=== PATIENT | male | born 1990 | race Caucasian/White ===

== ENCOUNTER 2016-09-28 11:27 | Emergency (ER) | payer BC, OTHER ==
[~2016-09-28] VITALS: Ht 167.6 cm; Wt 58.0 kg
[~2016-09-28 11:27] MED LIST: IBUP-1542 PO; MAG355OR14 PO; ONDA4TAB8 PO
[2016-09-28 11:29] VITALS: Ht 167.6 cm; Wt 58.0 kg
[2016-09-28] MEDS ORDERED: SOD CHLORIDE 0.9% 1,000 ML IV STA (12:01)
[2016-09-28] MEDS ORDERED: ONDANSETRON 4 MG INJ IV STA (12:01)
[2016-09-28] MEDS ORDERED: HYDROmorphONE 1 MG/ML SYG IV STA (12:01)
[2016-09-28 12:36] LABS: ADD SCAN DIFF NO
[2016-09-28 12:39] LABS: ABNORMAL IP MESSAGE 1; HEMATOCRIT 44.8 % (42.0-52.0); HEMOGLOBIN 14.9 g/dl (14.0-18.0); MEAN CORPUSCULAR HGB CONC 33.3 g/dl (32.0-37.0); MEAN CORPUSCULAR VOLUME 84.1 fl (82.0-101.0); MEAN PLATELET VOLUME 8.7 fl (7.4-10.4); PLATELET COUNT 403 10^3/UL (140-415); RED BLOOD COUNT 5.33 10^6/ul (4.70-6.10); RED CELL DISTRIBUTION WIDTH 11.6 % (11.5-14.5); WHITE BLOOD COUNT 21.3 10^3/ul (4.8-10.8)
[2016-09-28 12:43] LABS: ADD UMIC YES; URINE BILIRUBIN (Dip) 1+ (NEGATIVE); URINE BLOOD (Dip) 1+ (NEGATIVE); URINE COLOR YELLOW (YELLOW); URINE GLUCOSE (Dip) NEGATIVE (NEGATIVE); URINE KETONES (Dip) TRACE (NEGATIVE); URINE LEUKOCYTE ESTERASE (Dip) 2+ (NEGATIVE); URINE NITRITE (Dip) NEGATIVE (NEGATIVE); URINE TOTAL PROTEIN (Dip) 2+ (NEGATIVE); URINE UROBILINOGEN (Dip) 1.0 E.U./dL (0.1-1.0)
[2016-09-28 12:56] LABS: INR 1.07; PROTIME 13.9 Sec (12.2-14.2); PT RATIO 1.1
--- NOTE | 2016-09-28 12:56 | ERD ---
ER Documentation Chief Complaint Date/Time DATE: 09/28/16 TIME: 12:50 Chief Complaint ABD PAIN WITH NAUSEA/VOMITING , SWELLING ON GENITAL AREA HPI This patient is a 25-year-old male with no significant medical history presenting to the emergency department for scrotal edema which began suddenly 2 days ago. The symptoms have worsened. Additionally the patient reports bilateral suprapubic tenderness. The patient has never had these symptoms in the past. The pain is currently 9 out of 10 in severity and constant. The patient is taken no medications for his symptoms. The patient is sexually active with multiple partners. Last STD testing was approximately 3 months ago. Additionally the patient has had increased urinary urgency. He reports some mild pain in his prostate as well as tactile fevers. The patient denies any testicular trauma. He has had no history of STDs in the past. He denies any nausea, vomiting, diarrhea, or other symptoms at this time. ROS All systems reviewed and are negative except as per history of present illness. Medications Home Meds Active Scripts Naproxen* (Naprosyn*) 500 Mg Tablet, 500 MG PO BID Y for PAIN AND/OR INFLAMMATION, #20 TAB Prov:RADHIKA GRIFFIN PA-C 09/28/16 Hydrocodone/Acetaminophen (Caroline 5-325 Tablet) 1 Each Tablet, 1 TAB PO Q6H Y for PAIN, #15 TAB Prov:RADHIKA GRIFFIN PA-C 09/28/16 Doxycycline Hyclate* (Doxycycline Hyclate*) 100 Mg Tablet.dr, 100 MG PO BID for 10 Days, #20 TAB Prov:RADHIKA GRIFFIN PA-C 09/28/16 Ibuprofen* (Ibuprofen*) 600 Mg Tablet, 600 MG PO Q8 for PAIN, #30 TAB Prov:DESMOND ROY MD 06/01/16 Mag Hydrox/Al Hydrox/Simeth (Maalox Advanced Suspension) 355 Ml Oral.susp, 2 TSP PO TID, #24 OZ Prov:DESMOND ROY MD 06/01/16 Ondansetron Hcl* (Zofran*) 4 Mg Tablet, 4 MG PO Q8H Y for NAUSEA AND/OR VOMITING , #15 TAB Prov:DESMOND ROY MD 06/01/16 Allergies Allergies: Coded Allergies: No Known Allergy (Unverified , 12/10/14) PMhx/Soc Hx Alcohol Use: No (denies) Hx Substance Use: Yes (METH) Hx Tobacco Use: Yes (occaionally) Smoking Status: Never smoker FmHx Noncontributory for chief complaint Physical Exam Vitals Vital Signs Date Time Temp Pulse Resp B/P Pulse Ox O2 Delivery O2 Flow Rate FiO2 09/28/16 13:19 97.0 09/28/16 11:29 99.9 106 18 125/68 100 Physical Exam Const: The patient is resting in the gurney and mild distress secondary to pain. Head: Atraumatic Eyes: Normal Conjunctiva ENT: Normal External Ears, Nose and Mouth. Neck: Full range of motion..~ No meningismus. Resp: Clear to auscultation bilaterally Cardio: Regular rate and rhythm, no murmurs Abd: Soft, non tender, non distended. Normal bowel sounds Exam: Scrotum: Erythematous and edematous. Hernia: None Testes/Epid: Severely tender bilaterally, but worse on the right. The right testicle is indurated. Lymph: Mild bilateral inguinal lymphadenopathy. Discharge: None Skin: No petechiae or rashes Back: No midline or flank tenderness Ext: No cyanosis, or edema Neur: Awake and alert Psych: Normal Mood and Affect Result Diagram: 09/28/16 1221 09/28/16 1223 Results 24 hrs Laboratory Tests Test 09/28/16 12:20 09/28/16 12:21 09/28/16 12:23 Urine Bacteria MODERATE Urine Bilirubin 1+ Urine Clarity TURBID Urine Color YELLOW Urine Glucose NEGATIVE% Urine Hemoglobin 1+ Urine Ictotest NEGATIVE Urine Ketones TRACE Urine Leukocyte Esterase 2+ Urine Microscopic RBC 2-5/HPF Urine Microscopic WBC 5-10/HPF Urine Nitrite NEGATIVE Urine Specific Dale 1.025 Urine Total Protein 2+ Urine Urobilinogen 1.0 E.U./dL Urine pH 6.0 Activated Partial Thromboplast Time 34.3Sec Band Neutrophils % 2.0% Basophils # 10^3/ul Basophils % % Differential Comment MANUAL DIFF Eosinophils # 0.210^3/ul Eosinophils % 1.0% Giant Platelets RARE Hematocrit 44.8% Hemoglobin 14.9g/dl INR International Normalized Ratio 1.07 Large Platelets OCCASIONAL Lymphocytes # 3.210^3/ul Lymphocytes % 15.0% Mean Corpuscular Hemoglobin 28.0pg Mean Corpuscular Hemoglobin Concent 33.3g/dl Mean Corpuscular Volume 84.1fl Mean Platelet Volume 8.7fl Monocytes # 1.510^3/ul Monocytes % 7.0% Neutrophils # 14.710^3/ul Neutrophils % 69.0% Nucleated Red Blood Cells # 10^3/ul Nucleated Red Blood Cells % /100WBC Platelet Count 47843^3/UL Prothrombin Time 13.9Sec Prothrombin Time Ratio 1.1 Reactive Lymphocytes % 6.0% Red Blood Count 5.3310^6/ul Red Cell Distribution Width 11.6% White Blood Count 21.310^3/ul Alanine Aminotransferase (ALT/SGPT) 16IU/L Albumin 4.4g/dl Albumin/Globulin Ratio 1.12 Alkaline Phosphatase 85IU/L Anion Gap 20 Aspartate Amino Transf (AST/SGOT) 19IU/L Blood Urea Nitrogen 10mg/dl Calcium Level 10.0mg/dl Carbon Dioxide Level 30mmol/L Chloride Level 96mmol/L Creatinine 0.89mg/dl Direct Bilirubin 0.00mg/dl Globulin 3.90g/dl Glucose Level 112mg/dl Indirect Bilirubin 0.8mg/dl Lipase 19U/L Potassium Level 4.1mmol/L Sodium Level 142mmol/L Total Bilirubin 0.8mg/dl Total Protein 8.3g/dl Troponin I < 0.012ng/ml Current Medications Medications (Trade) Dose Ordered Sig/Savi Route PRN Reason Start Time Stop Time Status Last Admin Dose Admin Sodium Chloride (NS) 1,000 ml @ 1,000 mls/hr Q1H STAT IV 09/28/16 12:01 09/28/16 13:00 DC 09/28/16 12:19 Hydromorphone HCl (Dilaudid) 1 mg ONCE STAT IV 09/28/16 12:01 09/28/16 12:04 DC 09/28/16 12:20 Ondansetron HCl (Zofran Inj) 4 mg ONCE STAT IV 09/28/16 12:01 09/28/16 12:04 DC 09/28/16 12:20 Ceftriaxone Sodium (Rocephin) 1 gm ONCE ONCE IM 09/28/16 14:00 09/28/16 14:01 DC 09/28/16 14:03 Azithromycin (Zithromax) 1,000 mg ONCE ONCE PO 09/28/16 14:00 09/28/16 14:01 DC 09/28/16 14:03 Lidocaine (Xylocaine 1% (Mdv) 20 ml) 20 ml ONCE ONCE SC 09/28/16 14:00 09/28/16 14:01 DC 09/28/16 14:03 Procedures/[facility] EMERGENCY DEPARTMENT COURSE / MEDICAL DECISION MAKING: This is a 25-year-old male who comes to the emergency room secondary to complaints of scrotal erythema, edema, and severe pain. The patient was given IV Dilaudid, IV fluids, p.o. Tylenol in the department. On re-evaluation, the patient was feeling improved. Lab results reviewed and showed significant leukocytosis with left shift but no other significant acute abnormalities. Urinalysis was concerning for urinary tract infection. EKG: Interpreted by ED physician Rate/Rhythm: Sinus tachycardia with a rate of 102. QRS, ST, T-waves: [No changes consistent w/ acute ischemia] Impression: [No evidence of ischemia or arrhythmia] Radiology: PROCEDURE: XR Chest. CLINICAL INDICATION: Abdominal pain TECHNIQUE: Chest AP portable. COMPARISON: No comparison available. FINDINGS: The mediastinal structures are unremarkable. The heart is normal in size and configuration. The pulmonary vascularity is normal. The lung lópez are unremarkable. No consolidation is identified. The pleural spaces are unremarkable. The axial skeleton is unremarkable. IMPRESSION: No active intrathoracic disease. RPTAT: HGDB .Mo Preston MD, MD Date Time Electronically viewed and signed by .Mo Preston MD, MD on 09/28/2016 13:01 .B/ CC: RADHIKA GRIFFIN PA-C PROCEDURE: US Scrotum. CLINICAL INDICATION: Scrotal pain. TECHNIQUE: Multiple sonographic images of the scrotal region were obtained utilizing a linear array transducer with grayscale and color-flow and pulsed Doppler imaging. The images were reviewed on a high-resolution PACS workstation. COMPARISON: No prior studies are available for comparison. FINDINGS: The right testis measures 3.9 x 2.2 x 2.7 cm. The left testis measures 4.0 x 2.2 x 3.0 cm. There is no intratesticular mass. The right epididymis is enlarged and heterogeneous consistent with epididymitis. The left epididymis is normal. There is mild increased flow to the right testis with color Doppler and pulsed Doppler sonography, which may indicate early orchitis. The left testis demonstrates normal flow with color Doppler and pulsed Doppler sonography. There is a small right hydrocele. There is no left hydrocele. There is no varicocele. The scrotal wall is unremarkable. IMPRESSION: 1. Right epididymitis and possible early right orchitis. 2. Small right hydrocele. 3. Otherwise normal scrotal ultrasound. RPTAT: QQ .Bartolome Garcia MD, MD Date Time Electronically viewed and signed by .Bartolome Garcia MD, MD on 09/28/2016 13:37 .R/ CC: RDAHIKA GRIFFIN PA-C The primary diagnosis is acute epididymitis. Secondary diagnosis is orchitis. Other diagnoses include urinary tract infection and dysuria. I have low suspicion for testicular torsion, septicemia, or other emergent conditions at this time. Discharge: I have discussed the lab results and diagnostic findings with the patient and answered any questions or concerns. The patient was discharged with a prescription for doxycycline. He is to follow-up with urology and has been given information to do so. The patient was advised to followup with their PMD in 1-2 days and to return to the Emergency Department if there are any new or worsening symptoms. The patient understood and agreed with the diagnosis, treatment and plan. The patient is stable for discharge at this time. Departure Diagnosis: Primary Impression: Acute epididymitis Additional Impressions: Orchitis Urinary tract infection Urinary tract infection type: acute cystitis Hematuria presence: without hematuria Qualified Code: N30.00 - Acute cystitis without hematuria Dysuria Condition: Fair Patient Instructions: Treating Epididymitis and Orchitis Referrals: MALLORY WHITE MD [facility] Additional Instructions: Follow-up with urology as soon as possible. Follow-up with your primary care physician within 1 week. Return to the emergency department immediately should you have any new or worsening symptoms, uncontrolled fevers, or other unexplained symptoms. Take all medications as directed. RADHIKA GRIFFIN PA-C Sep 28, 2016 12:55
[2016-09-28 12:57] LABS: PARTIAL THROMBOPLASTIN TIME 34.3 Sec (25.0-35.0)
[2016-09-28 12:58] LABS: ALBUMIN 4.4 g/dl (3.3-4.9)
[2016-09-28 12:59] LABS: POTASSIUM 4.1 mmol/L (3.5-5.1)
[2016-09-28 13:01] LABS: ALBUMIN/GLOBULIN RATIO 1.12; BILIRUBIN,INDIRECT 0.8 mg/dl (0-1.1); BILIRUBIN,TOTAL 0.8 mg/dl (0.2-1.3); CREATININE 0.89 mg/dl (0.61-1.24); TOTAL PROTEIN 8.3 g/dl (6.1-8.1)
--- NOTE | 2016-09-28 13:01 | RADRPT ---
PROCEDURE: XR Chest. CLINICAL INDICATION: Abdominal pain TECHNIQUE: Chest AP portable. COMPARISON: No comparison available. FINDINGS: The mediastinal structures are unremarkable. The heart is normal in size and configuration. The pu lmonary vascularity is normal. The lung lópez are unremarkable. No consolidation is identified. The pleural spaces are unremarkable. The axial skeleton is unremarkable. IMPRESSION: No active intrathoracic disease. RPTAT: HGDB .Mo Preston MD, MD Date Time Electronically viewed and signed by .Mo Preston MD, MD on 09/28/2016 13:01 .B/
[2016-09-28 13:19] VITALS: TEMP 97
[2016-09-28 13:19] LABS: ICTOTEST NEGATIVE (NEGATIVE)
[2016-09-28 13:25] LABS: BACTERIA,URINE MODERATE
--- NOTE | 2016-09-28 13:37 | RADRPT ---
PROCEDURE: US Scrotum. CLINICAL INDICATION: Scrotal pain. TECHNIQUE: Multiple sonographic images of the scrotal region were obtained utilizing a linear arra y transducer with grayscale and color-flow and pulsed Doppler imaging. The images were reviewed on a high-resolution PACS workstation. COMPARISON: No prior studies are available for comparison. FINDINGS: The right testis measures 3.9 x 2.2 x 2.7 cm. The left testis measures 4.0 x 2.2 x 3.0 cm. There is no intratesticular mass. The right epididymis is enlarged and heterogeneous consistent with epididymitis. The left epididymi s is normal. There is mild increased flow to the right testis with color Doppler and pulsed Doppler sonography, w hich may indicate early orchitis. The left testis demonstrates normal flow with color Doppler and p ulsed Doppler sonography. There is a small right hydrocele. There is no left hydrocele. There is no varicocele. The scrotal wall is unremarkable. IMPRESSION: 1. Right epididymitis and possible early right orchitis. 2. Small right hydrocele. 3. Otherwise normal scrotal ultrasound. RPTAT: QQ .Bartolome Garcia MD, Date Time Electronically viewed and signed by .Bartolome Garcia MD, on 09/28/2016 13:37 .R/
[2016-09-28 13:50] LABS: EOSINOPHILS # 0.2 10^3/ul (0.0-0.5); LYMPHOCYTES # 3.2 10^3/ul (0.8-2.9); MONOCYTE # 1.5 10^3/ul (0.3-0.9); NEUTROPHIL # 14.7 10^3/ul (1.6-7.5)
[2016-09-28] MEDS ORDERED: HYDR-906 PO (13:57)
[2016-09-28] MEDS ORDERED: DOXY100T20 PO (13:57)
[2016-09-28] MEDS ORDERED: NAPR-260 PO (13:58)
[2016-09-28] MEDS ORDERED: LIDOCAINE 1% (MDV) 20 ML INJ SC ONE (14:00)
[2016-09-28] MEDS ORDERED: AZITHROMYCIN 250 MG TAB PO ONE (14:00)
[2016-09-28] MEDS ORDERED: CEFTRIAXONE 1 GM INJ IM ONE (14:00)
== END 2016-09-28 13:19 | disposition home or self-care (01) ==
LOC: FTE 11:27
DX: N45.1 Epididymitis (principal); N39.0 Urinary tract infection, site not specified; R30.0 Dysuria; N45.2 Orchitis; Z87.891 Personal history of nicotine dependence
CPT/HCPCS: 36415; 71010; 76870; 80053; 81001; 83690; 84484; 85025; 85610; 85730; 86850; 86900; 86901; 87086; 87591; 93005; 96372; 96374; 96375; 99285; J0696; J1170; J2405; J7030; 81003